=== PATIENT | female | born 1970 | race Caucasian/White ===

== ENCOUNTER → 2018-05-29 | Outpatient (CLI) | payer BC, OTHER ==
[~2018-05-29] VITALS: Ht 172.7 cm; Wt 161.0 kg
[~2018-05-29] MED LIST: CELEXA40 MG PO; HYDROCHLOROTHIA25 M2 PO; IMITREX100 MG PO; LIPITOR10 MG PO; LOSARTAN POTAS100 MG PO; NORTRIPTYLINE H10 M1 PO; TRANEXAMIC ACI650 MG PO; XANAX 0.25 MG0.25 MG PO
--- NOTE | ~2018-05-29 | PATH ---
[facility] [place] [address] PATHOLOGY RPT PROCEDURE Name: MISSY GRACIA Room #: REG YVONNE Verduzco.#: [id number] Admission: 05/29/18 Date of : 74 Discharge: Report #: [id number] Path Case #: [id number] [facility] Accession Number: [id number] . 01 Material submitted: . PART A: POLYP AT ASCENDING COLON PART B: POLYP AT SIGMOID COLON . 01 Clinical history: . Pre-OP DX: Family HX colon cancer Post-OP DX: Colon polyps, diverticulosis, interior hemorrhoids . 02 Diagnosis: A. Polyp, at ascending colon, endoscopic biopsy: - Tubular adenoma. - Negative for high grade dysplasia. . B. Polyp, at sigmoid colon, endoscopic biopsy: - Hyperplastic polyp and lymphoid aggregate. - Negative for dysplasia. (IUV/db; 05/30/18) LBQ/05/30/2018 . 02 Electronically signed: . Cristiane Collado MD, Pathologist NPI- [id number] . 01 Gross description: . A. Received in formalin labeled "Missy Gracia, polyp at ascending colon," is a single segment of stephen soft tissue measuring 0.5 cm in maximum dimension. The specimen is entirely submitted in cassette A1. . B. Received in formalin labeled "[place], Missy, polyp at sigmoid colon," is a single segment of stephen soft tissue measuring 0.5 cm in maximum dimension. The specimen is entirely submitted in cassette B1. (TSD; 05/29/2018) TOB/TOB . 02 Pathologist provided ICD-10: D12.2, K63.5 . 02 CPT . 619879, 054624 Specimen Comment: A courtesy copy of this report has been sent to Specimen Comment: [phone], . Specimen Comment: Report sent to / DR WERNER Specimen Comment: A duplicate report has [place] [address] PATHOLOGY RPT PROCEDURE Name: MISSY GRACIA Room #: REG YVONNE Nolasco#: [id number] Admission: 05/29/18 Date of : 74 Discharge: Report #: [id number] Path Case #: [id number] updates. Performed at: 01 [facility] Balta Pittman [address], [place] [id number] MD Paramjit Browning MD Phone: [phone] Performed at: [address] [id number] MD Cristiane Collado MD Phone: [phone]
== END | disposition home or self-care (01) ==
LOC: GI 11:12
DX: Z12.11 Encounter for screening for malignant neoplasm of colon (principal); Z86.010 Personal history of colon polyps; Z80.0 Family history of malignant neoplasm of digestive organs; D12.2 Benign neoplasm of ascending colon; K63.5 Polyp of colon; K57.30 Diverticulosis of large intestine without perforation or abscess without bleeding; K64.8 Other hemorrhoids; I10 Essential (primary) hypertension; E78.00 Pure hypercholesterolemia, unspecified; G43.909 Migraine, unspecified, not intractable, without status migrainosus; G47.33 Obstructive sleep apnea (adult) (pediatric); K21.9 Gastro-esophageal reflux disease without esophagitis; F32.9 Major depressive disorder, single episode, unspecified; F41.9 Anxiety disorder, unspecified; Z88.2 Allergy status to sulfonamides; Z98.890 Other specified postprocedural states; Z79.899 Other long term (current) drug therapy
CPT/HCPCS: 62110; 62900